=== PATIENT | female | born 1975 | race Caucasian/White ===

== ENCOUNTER 2022-07-17 11:08 | Outpatient (CLI) | payer BC | END 2022-07-17 11:09 | disposition home or self-care (01) | LOC: CSHRAD 11:08 | PROVIDERS: ATTEND Student in an Organized Health Care Education/Training Program | DX: M79.671 Pain in right foot (principal) ==

== ENCOUNTER 2024-03-02 10:28 | Outpatient (CLI) | payer BC ==
[2024-03-02 11:28] LABS: #Basophils 0.02 10x3/uL (0.0-0.2); #Eosinophils 0.17 10x3/uL (0.0-0.5); #Monocytes 0.61 10x3/uL (0.0-1.1); #Neutrophils 7.16 10x3/uL (1.5-8.4); %Basophils 0.2 % (0.0-2.0); %Eosinophils 1.6 % (0.0-6.0); %Lymphocytes 26.9 % (18.0-47.0); %Monocytes 5.6 % (0.0-10.0); %Neutrophils 65.4 % (40.0-75.0); Hematocrit 46.1 % (34.9-44.5); Hemoglobin 15.1 g/dL (12.0-15.5); Mean Corpuscular HGB CONC 32.8 g/dL (32.0-36.0); Mean Corpuscular Hemoglobin 29.5 pg (27.0-33.0); Mean Corpuscular Volume 90.2 fL (81.6-98.3); Mean Platelet Volume 11.2 fL (7.4-10.4); Platelet Count 319 10x3/uL (150-450); RBC Distribution Width 14.4 % (11.5-14.5); Red Blood Cell (RBC) Count 5.11 10x6/uL (3.90-5.03); White Blood Cell (WBC) Count 10.9 10x3/uL (3.5-10.5)
[2024-03-02 11:36] LABS: ALT (SGPT) 27 U/L (8-55); AST (SGOT) 15 U/L (5-34); Albumin 3.7 g/dL (3.5-5.0); Alkaline Phosphatase 102 U/L (40-110); Anion Gap 14 mmol/L (10-20); BUN (Urea Nitrogen) 13 mg/dL (7.0-18.7); Bilirubin, Total 0.6 mg/dL (0.2-1.2); Calc. Creatinine Clearance 0 mL/min (70-130); Calcium 10.4 mg/dL (7.8-10.44); Carbon Dioxide 25 mmol/L (22-29); Chloride 104 mmol/L (98-107); Estimated GFR 99; Globulin 3.2 g/dL (2.4-3.5); Glucose 144 mg/dL (70-105); Potassium 4.2 mmol/L (3.5-5.1); Protein, Total 6.9 g/dL (6.0-8.3); Sodium 139 mmol/L (136-145)
== END 2024-03-02 10:29 | disposition home or self-care (01) ==
LOC: CSHLAB 10:28
PROVIDERS: ATTEND Surgery
DX: Z01.812 Encounter for preprocedural laboratory examination (principal); A63.0 Anogenital (venereal) warts
CPT/HCPCS: 80053; 85025

== ENCOUNTER 2024-03-05 08:30 | Day surgery (SDC) | payer BC ==
[2024-03-02 11:02] VITALS: BMI 39.4
[2024-03-05] MEDS ORDERED: Bupivacaine HCl 0.5%/Epinephrine 1:200,000/PF 30 ml Vial ONE (10:25)
[2024-03-05] MEDS ORDERED: PROPOFOL 20 ML ONE (10:26)
[2024-03-05] MEDS ORDERED: Lidocaine 1% PF 5 ML VIAL ONE (10:26)
[2024-03-05] MEDS ORDERED: fentaNYL 50 mcg/mL 1 mL Vial ONE ×3 (10:26→11:33)
[2024-03-05] MEDS ORDERED: Dexamethasone 4 mg/ml Vial ONE (10:26)
[2024-03-05] MEDS ORDERED: Ondansetron PF 4 MG/2 ML Vial ONE (10:26)
[2024-03-05] MEDS ORDERED: Mupirocin 2% Ointment 22 GM Tube ONE (10:34)
[2024-03-05] MEDS ORDERED: LevoFLOXacin D5W 500 mg (100 mL) BAG ONE (10:40)
[2024-03-05] MEDS ORDERED: Midazolam HCl 2 mg/2 ml Vial ONE (10:47)
[2024-03-05] MEDS ORDERED: HYDROcodone/Acetaminophen 5/325 mg Tablet ONE (12:13)
== END 2024-03-05 12:55 | disposition home or self-care (01) ==
LOC: CSHSDC 08:30
PROVIDERS: ATTEND Surgery
PROC: 0D5P7ZZ Destruction of Rectum, Via Natural or Artificial Opening (ICD-10-PCS; principal; 2024-03-05)
DX: A63.0 Anogenital (venereal) warts (principal); E66.01 Morbid (severe) obesity due to excess calories; F17.200 Nicotine dependence, unspecified, uncomplicated; Z87.59 Personal history of other complications of pregnancy, childbirth and the puerperium; Z68.41 Body mass index [BMI] 40.0-44.9, adult; Z88.0 Allergy status to penicillin; Z88.5 Allergy status to narcotic agent; Z88.8 Allergy status to other drugs, medicaments and biological substances; Z79.51 Long term (current) use of inhaled steroids; Z79.899 Other long term (current) drug therapy
CPT/HCPCS: 88305; J1100; J1956; J2250; J2405; J2704; J3010